=== PATIENT | female | born 1990 | race Caucasian/White ===

== ENCOUNTER → 2016-08-10 | Outpatient (CLI) | payer OTHER ==
[~2016-08-10] VITALS: Ht 165.1 cm; Wt 52.0 kg
[~2016-08-10] MED LIST: AMOX TR-K CLV1 EAC4 PO; FLONASE16 G1 BOTH NARES; Feosol PO; HYDROCODON-ACE1 EAC7 PO; IBUPROFEN800 MG PO; KEFLEX500 MG PO; MOTRIN600 MG PO; MUCUS ER600 MG PO; Motrin PO; NAPROSYN500 MG PO; NAPROXEN500 MG PO; PRENATAL TABLE1 EAC3 PO; TRAMADOL HCL50 MG PO; TYLENOL EXTRA500 MG
[2016-08-10 19:00] VITALS: BP 104/62
== END | disposition home or self-care (01) ==
LOC: IVINF 18:53
DX: O36.0990 Maternal care for other rhesus isoimmunization, unspecified trimester, not applicable or unspecified (principal); Z3A.00 Weeks of gestation of pregnancy not specified
CPT/HCPCS: 96372; J2790

== ENCOUNTER 2016-08-11 14:54 | Emergency (ER) | payer OTHER ==
[~2016-08-11] VITALS: Ht 165.1 cm; Wt 52.0 kg
[2016-08-11 17:09] LABS: MCH 29.6 PG (29.0-34.0); MCHC 35.1 G/DL (30.0-36.0); MCV 84.3 FL (83-99); MEAN PLAT.VOLUME 9.7 uM^3 (9.5-12.4); PLATELET COUNT 149 K/uL (156-360); RBC DIS.WIDTH-SD 38.8 % (39-53); RED BLOOD COUNT 4.15 M/uL (3.80-5.20); WHITE BLOOD COUNT 5.3 K/uL (4.1-10.2)
[2016-08-11 17:20] LABS: CHLORIDE 106 mEq/L (99-109); POTASSIUM 3.7 mEq/L (3.7-5.4); SODIUM 138 mEq/L (136-147)
[2016-08-11 17:22] LABS: GLUCOSE 77 mg/dL (70-99)
[2016-08-11 17:23] LABS: ANION GAP 10 MEQ/L (2-14)
[2016-08-11 17:24] LABS: TOTAL BILIRUBIN 0.2 mg/dL (0.0-1.0)
[2016-08-11 17:26] LABS: ALKALINE PHOSPHATASE 50 IU/L (3-129); GFR ESTIMATE (CALCULATED) > 59 mL/min/
[2016-08-11 17:27] LABS: UREA NITROGEN (BUN) 7 mg/dL (9-23)
[2016-08-11 17:29] LABS: LIPASE 36 U/L (1.0-51.0)
[2016-08-11 17:56] LABS: QUANTITATIVE HCG 73791.7 MIU/ML
[2016-08-11 18:48] LABS: ADD MIUA? YES; BILIRUBIN NEGATIVE; BLOOD MODERATE; COLOR YELLOW ((YELLOW)); GLUCOSE (STRIP) NEGATIVE; KETONES 20; LEUKOCYTES NEGATIVE; NITRITE NEGATIVE; PROTEIN (STRIP) 30; SPECIFIC GRAVITY 1.028 (1.000-1.030); UROBILINOGEN 0.2 MG/DL (0.2-1.0)
[2016-08-11 19:19] LABS: BACTERIA 1+ /HPF; EPITHELIAL CELLS 1+ /HPF; MUCUS 4+ /LPF; UCUL ADDED? NO; WHITE BLOOD CELLS 0-5 /HPF (0-5)
[2016-08-11 19:46] VITALS: BP 118/73
== END 2016-08-11 19:59 | disposition home or self-care (01) ==
LOC: EME 14:54
DX: O20.0 Threatened abortion (principal); Z3A.14 14 weeks gestation of pregnancy
CPT/HCPCS: 80053; 81003; 83690; 84702; 85027; 99281; 99284

== ENCOUNTER → 2016-11-28 | Outpatient (CLI) | payer OTHER ==
[~2016-11-28] VITALS: Ht 165.1 cm; Wt 55.0 kg
[2016-11-28 15:09] VITALS: BP 101/55
== END | disposition home or self-care (01) ==
LOC: IVINF 10-20 15:00
DX: Z31.82 Encounter for Rh incompatibility status (principal)
CPT/HCPCS: 96372; J2790

== ENCOUNTER 2017-02-05 15:31 | Inpatient (IN) | payer OTHER ==
[~2017-02-05] VITALS: Ht 165.1 cm; Wt 63.6 kg
[2017-02-05] VITALS (8 sets, daily range): BP systolic 105–128; BP diastolic 56–71
[2017-02-05 17:32] LABS: EOSINOPHIL (%) 0.5 % (0-5); EOSINOPHIL COUNT 0.1 K/uL (0-0.3); HEMATOCRIT 30.6 % (36.0-46.0); IMMATURE GRANULOCYTE (%) 0.6 % (0.0-0.7); IMMATURE GRANULOCYTE COUNT 0.1 K/uL; INSTRUMENT ABS NEUTROPHIL CT 8.9 K/uL; LYMPHOCYTE COUNT 1.7 K/uL (1.0-2.8); MCH 30.7 PG (29.0-34.0); MCV 87.7 FL (83-99); MEAN PLAT.VOLUME 9.8 uM^3 (9.5-12.4); MONOCYTE (%) 6.6 % (3-12); MONOCYTE COUNT 0.8 K/uL (0-0.8); NEUTROPHIL (%) 77.5 % (45-76); NEUTROPHIL COUNT 8.9 K/uL (1.8-6.4); PLATELET COUNT 190 K/uL (156-360); RBC DIS.WIDTH-CV 13.1 % (11.8-14.6); RBC DIS.WIDTH-SD 41.7 % (39-53); RED BLOOD COUNT 3.49 M/uL (3.80-5.20); WHITE BLOOD COUNT 11.4 K/uL (4.1-10.2)
[2017-02-05 17:45] LABS: ANION GAP 7 MEQ/L (2-14); CHLORIDE 108 MEQ/L (99-109); POTASSIUM 3.7 MEQ/L (3.7-5.4); SAMPLE HEMOLYSIS CHECK 0; SAMPLE ICTERIC CHECK 0; SAMPLE LIPEMIA CHECK 0; SODIUM 137 MEQ/L (136-147); TOTAL BILIRUBIN 0.2 MG/DL (0.0-1.0)
[2017-02-05 17:50] LABS: ALKALINE PHOSPHATASE 141 IU/L (3-129); GFR ESTIMATE (CALCULATED) > 59 mL/min/; GLUCOSE 90 mg/dL (70-99); UREA NITROGEN (BUN) 7 mg/dL (9-23)
[2017-02-05 18:07] LABS: AMPHETAMINE NEGATIVE (500 ng/mL); BARBITURATES NEGATIVE (200 ng/mL); BENZODIAZEPINES NEGATIVE (150 ng/mL); COCAINE NEGATIVE (150 ng/mL); INTERNAL CONTROLS VALID? YES; METHADONE NEGATIVE (200 ng/mL); METHAMPHETAMINE NEGATIVE (500 ng/mL); OPIATES (MORPHINE) NEGATIVE (100 ng/mL); OXYCODONE NEGATIVE (100 ng/mL); PHENCYCLIDINE NEGATIVE (25 ng/mL); PROPOXYPHENE NEGATIVE (300 ng/mL); THC CANNABINOIDS NEGATIVE (50 ng/mL); TRICYCLIC ANTIDEPRESSANTS NEGATIVE (300 ng/mL)
[2017-02-06] VITALS (34 sets, daily range): BP systolic 77–129; BP diastolic 43–81
[2017-02-07 07:21] LABS: EOSINOPHIL (%) 0.5 % (0-5); EOSINOPHIL COUNT 0.1 K/uL (0-0.3); HEMATOCRIT 31.9 % (36.0-46.0); IMMATURE GRANULOCYTE (%) 0.8 % (0.0-0.7); IMMATURE GRANULOCYTE COUNT 0.1 K/uL; INSTRUMENT ABS NEUTROPHIL CT 12.3 K/uL; LYMPHOCYTE COUNT 1.8 K/uL (1.0-2.8); MCH 30.5 PG (29.0-34.0); MCHC 33.5 G/DL (30.0-36.0); MCV 90.9 FL (83-99); MEAN PLAT.VOLUME 9.8 uM^3 (9.5-12.4); MONOCYTE (%) 5.8 % (3-12); MONOCYTE COUNT 0.9 K/uL (0-0.8); NEUTROPHIL (%) 81.1 % (45-76); NEUTROPHIL COUNT 12.3 K/uL (1.8-6.4); PLATELET COUNT 195 K/uL (156-360); RBC DIS.WIDTH-CV 13.2 % (11.8-14.6); RBC DIS.WIDTH-SD 42.9 % (39-53); RED BLOOD COUNT 3.51 M/uL (3.80-5.20); WHITE BLOOD COUNT 15.1 K/uL (4.1-10.2)
[2017-02-07 07:47] VITALS: BP 100/49
[2017-02-07 15:40] VITALS: BP 100/57
[2017-02-07 22:27] VITALS: BP 124/74
[2017-02-08 07:49] VITALS: BP 122/77
[2017-02-08] MEDS ORDERED: Tylenol Extra Streng PO (09:12)
[2017-02-08] MEDS ORDERED: IBUPROFEN800 MG PO (09:12)
== END 2017-02-08 15:20 | disposition home or self-care (01) | DRG 774 ==
LOC: LDRP-OP 15:31 → 2WEST 15:32 → LDRP-OP 04-01 09:56
PROVIDERS: Advanced Practice Midwife
PROC: 3E033VJ Introduction of Other Hormone into Peripheral Vein, Percutaneous Approach (ICD-10-PCS; principal; 2017-02-06)
PROC: 10E0XZZ Delivery of Products of Conception, External Approach (ICD-10-PCS; principal; 2017-02-06)
PROC: 10907ZC Drainage of Amniotic Fluid, Therapeutic from Products of Conception, Via Natural or Artificial Opening (ICD-10-PCS; principal; 2017-02-06)
PROC: 00HU33Z Insertion of Infusion Device into Spinal Canal, Percutaneous Approach (ICD-10-PCS; principal; 2017-02-06)
PROC: 3E0P7GC Introduction of Other Therapeutic Substance into Female Reproductive, Via Natural or Artificial Opening (ICD-10-PCS; 2017-02-06)
PROC: 3E0R3CZ (ICD-10-PCS; 2017-02-06)
DX: O41.03X0 Oligohydramnios, third trimester, not applicable or unspecified (principal); O76 Abnormality in fetal heart rate and rhythm complicating labor and delivery; O99.344 Other mental disorders complicating childbirth; M41.9 Scoliosis, unspecified; O99.89 Other specified diseases and conditions complicating pregnancy, childbirth and the puerperium; F41.9 Anxiety disorder, unspecified; O98.42 Viral hepatitis complicating childbirth; N64.0 Fissure and fistula of nipple; B19.20 Unspecified viral hepatitis C without hepatic coma; F90.9 Attention-deficit hyperactivity disorder, unspecified type; F32.9 Major depressive disorder, single episode, unspecified; Z3A.39 39 weeks gestation of pregnancy; Z87.440 Personal history of urinary (tract) infections; Z37.0 Single live birth; Z87.891 Personal history of nicotine dependence
CPT/HCPCS: 80053; 83030; 85025; 86850; 86870; 86900; 86901; C1726; C1755; G0378; J1050; J2790; J3010; J7120

== ENCOUNTER 2017-05-06 10:46 | Emergency (ER) | payer OTHER ==
[~2017-05-06] VITALS: Ht 165.1 cm; Wt 53.7 kg
[~2017-05-06 10:46] MED LIST changes: +Tylenol Extra Streng PO
[2017-05-06] MEDS ORDERED: AUGMENTIN875 MG PO (14:21)
[2017-05-06] MEDS ORDERED: MOTRIN600 MG PO (14:22)
[2017-05-06 14:32] VITALS: BP 85/71
== END 2017-05-06 15:02 | disposition home or self-care (01) ==
LOC: EME 10:46
DX: J01.90 Acute sinusitis, unspecified (principal)
CPT/HCPCS: 87502; 99281; 99283